=== PATIENT | male | born 1950 | race Caucasian/White ===

== ENCOUNTER → 2017-05-18 | Day surgery (SDC) | payer OTHER ==
[~2017-05-18] VITALS: Ht 170.2 cm; Wt 60.9 kg
[~2017-05-18] MED LIST: ACETAMINOPHEN 500 MG TAB PO PRN; ALFU10TA30 PO; BISA1TAB15 PO; FINA5TAB PO; HYDR50CA2 PO; LOVA40TA4 PO; NTRGSL/4 UT; ONDA4TAB46 PO; PARO1TAB27 PO; PRLSR20 PO; SIME80CH PO
[2017-05-18 09:21] VITALS: BP 132/91; PULSE 97; TEMP 36.5; O2SAT 97; Ht 170.2 cm; Wt 60.9 kg
[2017-05-18 10:06] LABS: PLATELET COUNT 460 K/uL (130-400)
[2017-05-18 10:19] LABS: INR 1.1 (0.9-1.1); PARTIAL THROMBOPLASTIN RATIO 1.1; PROTHROMBIN TIME (PATIENT) 11.4 SECONDS (9.0-12.0)
--- NOTE | 2017-05-18 11:27 | Discharge Instructions ---
Discharge Instructions Procedure Procedure Date: May 18, 2017. Reason for visit: Liver Mass. Discharge Discharge Date: May 18, 2017. Discharge Diagnosis: Ultrasound guided fine needle aspiration of liver mass Medications Restart Stopped Medication(s): Resume home meds Instructions Activity Recommendations: No limitations Return to School/Work: no limitations Recommended Home Diet: No Limitations Provider Instructions: Ultrasound guided Liver Core Biopsy performed [ Right/Left] lobe liver using 2 passes with 22g needle without complication. Allergies Coded Allergies: Aspirin (Verified Allergy, Intermediate, HIVES, 05/18/17) Penicillins (Verified Allergy, Intermediate, HIVES, 05/18/17) Sodium Chloride (Verified Adverse Reaction, Intermediate, SINUS DISCOMFORT , 05/18/17) [place] Recommendations: Call your doctor if: * Temperature above 101 degrees * Pain not relieved by pain medicine ordered * There is increased drainage or redness from any incision * You have any unanswered questions or concerns. Your Doctors Instructions noted above were prepared by provider Sea Chavez. Patient Signature Section: Patient Instructions Signature Page Michel Mackay Patient (or Guardian) Signature/Date: I have read and understand the instructions given to me by my caregivers. Caregiver/RN/Doctor Signature/Date: The above-named patient and/or guardian has received patient instructions on this date. + Original Patient Signature Page (only) stays with chart. Please make copy for patient.
[2017-05-18 11:30] VITALS: BP 140/84; PULSE 99; TEMP 36.5; O2SAT 93
[2017-05-18 11:50] VITALS: BP 116/87; PULSE 100; TEMP 36.8; O2SAT 92
--- NOTE | 2017-05-18 12:22 | DIAGNOSTIC IMAGING REPORT ---
GUIDANCE NEEDLE PLACEMENT CLINICAL HISTORY: 66 years-old Male presenting with metastatic disease of unknown origin. TECHNIQUE: Real-time grayscale and limited color Doppler ultrasound imaging of the liver was performed for ultrasound-guided fine-needle aspiration. COMPARISON: Outside CT from 04/20/2017. PROCEDURE: The risks, benefits, and alternatives to the procedure were discussed with the patient. Written informed consent was obtained. The patient was placed supine in ultrasound, and dominant left liver lesion was localized by ultrasound and selected for fine needle aspiration. Right upper quadrant was prepped and draped in the usual aseptic fashion. The lesion was aspirated under ultrasound guidance with 2 passes utilizing 22-gauge needles. Specimens were reviewed by the pathologist at the time of biopsy and were deemed adequate for diagnosis. The patient tolerated the procedure well, and was observed in the department per protocol prior to discharge. IMPRESSION: Successful fine-needle aspiration of the left hepatic lobe lesion as above. Electronically signed by: Sea Chavez M.D. 05/18/2017 12:21 PM Dictated Date/Time: 05/18/2017 12:19 PM
[2017-05-18 12:25] VITALS: BP 154/84; PULSE 100; TEMP 36.3; O2SAT 96
[2017-05-18 13:02] VITALS: BP 135/87; PULSE 100; TEMP 36.7; O2SAT 94
[2017-05-18 13:35] VITALS: BP 135/85; PULSE 101; TEMP 37.2; O2SAT 93
== END | disposition home or self-care (01) ==
LOC: C.ACU 09:02
PROVIDERS: ATTEND Internal Medicine Critical Care Medicine
DX: C78.7 Secondary malignant neoplasm of liver and intrahepatic bile duct (principal); C80.1 Malignant (primary) neoplasm, unspecified; R16.0 Hepatomegaly, not elsewhere classified; K76.9 Liver disease, unspecified; E78.2 Mixed hyperlipidemia; F41.9 Anxiety disorder, unspecified; G89.29 Other chronic pain; K21.9 Gastro-esophageal reflux disease without esophagitis; K29.70 Gastritis, unspecified, without bleeding; R14.0 Abdominal distension (gaseous)